=== PATIENT | female | born 1955 | race Caucasian/White ===

== ENCOUNTER 2016-11-11 06:35 | Day surgery (SDC) | payer OTHER ==
[2016-11-10 10:52] VITALS: Ht 167.6 cm; Wt 95.4 kg
[2016-11-11] VITALS (15 sets, daily range): BP systolic 109–148; BP diastolic 57–80; PULSE 44–77; RESP 12–21
[~2016-11-11] VITALS: Ht 167.6 cm; Wt 95.4 kg
[~2016-11-11 06:35] MED LIST: ENAL1TAB PO
[2016-11-11] MEDS ORDERED: ENAL20TA PO (07:38)
[2016-11-11] MEDS ORDERED: SIMV10TA PO (07:39)
[2016-11-11] MEDS ORDERED: ASPI-664 PO (07:39)
[2016-11-11] MEDS ORDERED: HYD25 PO (07:39)
[2016-11-11] MEDS ORDERED: OMEP20CA16 PO (07:40)
[2016-11-11] MEDS ORDERED: PRAM0.25 PO (07:40)
[2016-11-11] MEDS ORDERED: TRAM-40 PO (07:41)
[2016-11-11] MEDS ORDERED: GABA100C14 PO (07:42)
--- NOTE | 2016-11-11 09:30 | HPN ---
Date/Time of Note Date/Time of Note DATE: 11/11/16 TIME: 09:30 Interval H&P Admission Note Pt. seen H&P reviewed: No system changes CHRISTAL GENAO MD Nov 11, 2016 09:30
[2016-11-11] MEDS ORDERED: FENTAnyl 50 MCG/ML VIAL ONE (09:54)
[2016-11-11] MEDS ORDERED: ROCURONIUM 50 MG INJ ONE (10:09)
[2016-11-11] MEDS ORDERED: LIDOCAINE 2% (SDV) 5 ML INJ ONE (10:09)
[2016-11-11] MEDS ORDERED: SUCCINYLCHOLINE CHLORIDE 100 MG/5 ML SYG IV ONE (10:09)
[2016-11-11] MEDS ORDERED: GLYCOPYRROLATE 0.4 MG INJ ONE (10:09)
[2016-11-11] MEDS ORDERED: NEOSTIGMINE 3 MG/3 ML SYRINGE ONE (10:09)
[2016-11-11] MEDS ORDERED: PROPOFOL 20 ML ONE (10:09)
[2016-11-11] MEDS ORDERED: ONDANSETRON 4 MG INJ IV PRN (10:30)
[2016-11-11] MEDS ORDERED: MEPERIDINE 25 MG INJ IV PRN (10:30)
[2016-11-11] MEDS ORDERED: HYDROmorphONE (0.2 MG/ML) 10ML SYG IV PRN ×3 (10:30)
[2016-11-11] MEDS ORDERED: METOCLOPRAMIDE 10 MG INJ IV PRN (10:30)
[2016-11-11] MEDS ORDERED: FENTAnyl 50 MCG/ML VIAL IV PRN (10:30)
[2016-11-11] MEDS ORDERED: DIPHENHYDRAMINE 50 MG INJ IV PRN (10:30)
--- NOTE | 2016-11-11 11:03 | PD.PPDC ---
SALES ESTIMATOR Discharge Instruction Diagnosis Final Diagnosis: pedunclated uterine fibroid Condition Patient Condition: Stable Diet Diet: Resume Regular Diet Activity/Restrictions Activity: May Shower Restrictions: No Sexual Activity Nothing in the Vagina No [place] No Tampons, douche Follow-up Follow-up with Physician: Week/Weeks Return to clinic for INTERNAL MEDICINE NURSE Instructions: Fever greater than 101 Chills Worsening abdominal pain Excessive Vaginal Bleeding More than 2 pads per hour Unable to tolerate diet CHRISTAL GENAO MD Nov 11, 2016 11:03
--- NOTE | 2016-11-12 22:35 | OPR ---
DATE OF OPERATION: 11/11/2016 PREOPERATIVE DIAGNOSIS: Prominent endometrium, postmenopausal. POSTOPERATIVE DIAGNOSIS: Submucosal pedunculated fibroid. ANESTHESIA: General. ANESTHESIOLOGIST: Dr. Massey. SURGEON: Kostas Abdi MD. ARCHITECT NAVAL: Jeffrey montenegro [facility]. ESTIMATED BLOOD LOSS: Negligible. PROCEDURE: Under appropriate induction of general anesthesia, the patient was placed in dorsal recu mbent position. Perineal area and vagina wall was prepped and draped in usual aseptic manner. On i nspection, external genitalia revealed no gross abnormality. Bimanual examination was inadequate du e to the body habitus, but on ultrasound the size of the uterus was less than 7 cm and the endometri um was 1.2 cm. Weighted speculum was introduced, cervix was identified, which was grasped with a si ngle tooth tenaculum. Endocervical curettage was performed, obtaining scanty tissue, which was sent to pathology separately. Cavity was sounded, which was 6.5 cm. Os dilated gradually up to a size 7, and the hysteroscope was introduced. There were some blockage that seems to be covering the endo cervical canal, which was further inserted and uterine cavity was distended with normal saline and r eached the fundus an ostium, which was clearly seen except there was something blocking on the os, o riginated from medial cavity with a long stalk, suggesting submucosal pedunculated submucous fibroid . At this point, the resector was inserted, which was Ultra Mini, and shaving of the pedunculated f ibroid was started, and gradually up to the base of the submucous fibroid was resected successfully. Then, addition uterine curettage was done to obtain some endometrium. This tissue was all retriev ed in the canister. Picture taken. Procedure was completed successfully. All the instruments were removed from the operative field, to include the hysteroscope, at once. Cervix was checked for ble eding, which was intact. The sponge count was taken, which was correct. Patient was sent to the re covery room in stable condition. Dictated By: KOSTAS CARRIZALES/JORDYN Conf#: [id number] DID#: [id number]
== END 2016-11-11 13:00 | disposition home or self-care (01) ==
LOC: SDS 06:35
PROVIDERS: ATTEND Obstetrics & Gynecology
DX: D25.0 Submucous leiomyoma of uterus (principal); E66.9 Obesity, unspecified; Z68.33 Body mass index [BMI] 33.0-33.9, adult
CPT/HCPCS: 58558; 88305; J1170; J2175; J2405; J2710; J3010; J7999; Z7512; Z7610

== ENCOUNTER 2018-03-08 11:52 | Day surgery (SDC) | END 2018-03-08 14:39 | disposition home or self-care (01) ==